=== PATIENT | male | born 1960 | race Caucasian/White ===

== ENCOUNTER → 2016-12-14 | Outpatient (CLI) | payer OTHER, MEDICARE | LOC: EMI 15:37 | DX: M54.16 Radiculopathy, lumbar region (principal); M47.816 Spondylosis without myelopathy or radiculopathy, lumbar region; M47.817 Spondylosis without myelopathy or radiculopathy, lumbosacral region; M48.07 Spinal stenosis, lumbosacral region; M51.37 Other intervertebral disc degeneration, lumbosacral region; Z88.0 Allergy status to penicillin; Z88.2 Allergy status to sulfonamides | CPT/HCPCS: 72148 ==

== ENCOUNTER → 2016-12-26 | Outpatient (CLI) | payer OTHER, MEDICARE | LOC: EMI 13:40 | DX: M54.5 Low back pain (principal); M54.16 Radiculopathy, lumbar region; M51.36 Other intervertebral disc degeneration, lumbar region | CPT/HCPCS: 72148 ==

== ENCOUNTER → 2017-01-08 | Outpatient (CLI) | payer OTHER, MEDICARE | LOC: KOH-I 08:19 | DX: R91.1 Solitary pulmonary nodule (principal); R06.02 Shortness of breath; J98.4 Other disorders of lung | CPT/HCPCS: 71250 ==

== ENCOUNTER → 2017-02-15 | Outpatient (CLI) | payer OTHER, MEDICARE | LOC: RAD 10:13 | DX: M25.552 Pain in left hip (principal) | CPT/HCPCS: 73502 ==

== ENCOUNTER 2020-11-23 15:09 | Emergency (ER) | payer OTHER ==
[~2020-11-23 15:09] MED LIST: K-DUR TAB 20 M20 MEQ PO
[2020-11-23 16:36] LABS: HEMOGLOBIN 15.1 gm/dl (14.0-17.5); RED BLOOD COUNT 4.61 M/UL (4.20-5.50); WHITE BLOOD COUNT 19.9 K/UL (4.5-11.0)
[2020-11-23 17:13] LABS: BUN/CREATININE RATIO 10 (0-10)
== END 2020-11-23 21:49 | disposition home or self-care (01) ==
LOC: ER1 15:09
PROVIDERS: Physician Assistant Medical
DX: E11.649 Type 2 diabetes mellitus with hypoglycemia without coma (principal); R55 Syncope and collapse; I12.9 Hypertensive chronic kidney disease with stage 1 through stage 4 chronic kidney disease, or unspecified chronic kidney disease; Z20.822 Contact with and (suspected) exposure to COVID-19; N18.9 Chronic kidney disease, unspecified; E11.22 Type 2 diabetes mellitus with diabetic chronic kidney disease; F17.210 Nicotine dependence, cigarettes, uncomplicated; Z90.49 Acquired absence of other specified parts of digestive tract; Z88.0 Allergy status to penicillin; Z88.2 Allergy status to sulfonamides; Z79.899 Other long term (current) drug therapy
CPT/HCPCS: 70450; 71045; 80053; 81001; 82550; 82553; 82962; 83874; 83880; 84484; 85025; 93005; 96374; 96376; 99284; U0002

== ENCOUNTER → 2020-11-30 | Outpatient (CLI) | payer OTHER ==
[~2020-11-30] MED LIST changes: +ALDACTONE25 MG PO; +AMITRIPTYLINE H25 MG PO; +ASPIRIN EC81 MG PO; +AVALIDE 300-121 EACH PO; +BACTROBAN OINT22 GM EXT; +BYSTOLIC10 MG PO; +CLEOCIN HCL300 MG PO; +COLESTID1 GM PO; +EFFEXOR XR 75 M75 MG PO; +GABAPENTIN400 MG PO; +LACTULOSE10 GM/15 M PO; +LIPITOR20 MG PO; +MAGNESIUM OXID400 M1 PO; +NEURONTIN800 MG PO; +NOVOLIN 70100 UNIT/2 SC; +OMEPRAZOLE40 MG PO; +ZANAFLEX4 MG PO
[2020-11-30 15:47] LABS: HEMOGLOBIN 13.9 gm/dl (14.0-17.5); RED BLOOD COUNT 4.32 M/UL (4.20-5.50); WHITE BLOOD COUNT 10.9 K/UL (4.5-11.0)
[2020-11-30 16:23] LABS: BUN/CREATININE RATIO 16 (0-10)
== END ==
LOC: LAB 15:08
PROVIDERS: Nurse Practitioner Family
DX: J18.9 Pneumonia, unspecified organism (principal); I51.7 Cardiomegaly
CPT/HCPCS: 36415; 71046; 80048; 83605; 85025

== ENCOUNTER 2020-12-26 16:35 | Emergency (ER) | payer OTHER ==
[~2020-12-26 16:35] MED LIST changes: -ALDACTONE25 MG PO; -AMITRIPTYLINE H25 MG PO; -ASPIRIN EC81 MG PO; -AVALIDE 300-121 EACH PO; -BACTROBAN OINT22 GM EXT; -BYSTOLIC10 MG PO; -CLEOCIN HCL300 MG PO; -COLESTID1 GM PO; -EFFEXOR XR 75 M75 MG PO; -GABAPENTIN400 MG PO; -LACTULOSE10 GM/15 M PO; -LIPITOR20 MG PO; -MAGNESIUM OXID400 M1 PO; -NEURONTIN800 MG PO; -NOVOLIN 70100 UNIT/2 SC; -OMEPRAZOLE40 MG PO; -ZANAFLEX4 MG PO
[2020-12-26 18:09] LABS: RED BLOOD COUNT 4.89 M/UL (4.20-5.50); WHITE BLOOD COUNT 15.3 K/UL (4.5-11.0)
[2020-12-26] MEDS ORDERED: CLEOCIN HCL300 MG PO (20:23)
[2020-12-26] MEDS ORDERED: BACTROBAN OINT22 GM EXT (20:23)
== END 2020-12-26 20:30 | disposition home or self-care (01) ==
LOC: ER1 16:35
PROVIDERS: Physician Assistant Medical
DX: L02.415 Cutaneous abscess of right lower limb (principal); E11.9 Type 2 diabetes mellitus without complications; E78.5 Hyperlipidemia, unspecified; J44.9 Chronic obstructive pulmonary disease, unspecified; I10 Essential (primary) hypertension; Z90.49 Acquired absence of other specified parts of digestive tract; Z88.0 Allergy status to penicillin; Z88.2 Allergy status to sulfonamides
CPT/HCPCS: ECHO; 36415; 80053; 80061; 83036; 83735; 84484; 85025; 87070; 87205; 93005; 93306; 96374; 99283; J2405

== ENCOUNTER → 2020-12-26 | Outpatient (CLI) | payer OTHER | LOC: ECHO 11:00 | PROVIDERS: Emergency Medicine | DX: I11.0 Hypertensive heart disease with heart failure (principal); I50.9 Heart failure, unspecified; E11.9 Type 2 diabetes mellitus without complications; I08.3 Combined rheumatic disorders of mitral, aortic and tricuspid valves; I27.20 Pulmonary hypertension, unspecified | CPT/HCPCS: ECHO; 36415; 80053; 80061; 83036; 93306 ==

== ENCOUNTER 2021-01-02 11:23 | Emergency (ER) | payer OTHER ==
[~2021-01-02] VITALS: Ht 172.7 cm; Wt 124.7 kg
[~2021-01-02 11:23] MED LIST changes: +BACTROBAN OINT22 GM EXT; +CLEOCIN HCL300 MG PO
[2021-01-02 12:04] LABS: HEMOGLOBIN 17.7 gm/dl (14.0-17.5); RED BLOOD COUNT 5.44 M/UL (4.20-5.50); WHITE BLOOD COUNT 15.1 K/UL (4.5-11.0)
== END 2021-01-03 00:38 | disposition short-term general hospital (02) ==
LOC: ER1 11:23
PROVIDERS: Physician Assistant
DX: N28.9 Disorder of kidney and ureter, unspecified (principal); M62.82 Rhabdomyolysis; R41.82 Altered mental status, unspecified; E78.5 Hyperlipidemia, unspecified; Z20.822 Contact with and (suspected) exposure to COVID-19; J44.9 Chronic obstructive pulmonary disease, unspecified; I11.0 Hypertensive heart disease with heart failure; I50.9 Heart failure, unspecified; E11.9 Type 2 diabetes mellitus without complications; Z90.49 Acquired absence of other specified parts of digestive tract; Z79.4 Long term (current) use of insulin; Z79.899 Other long term (current) drug therapy; Z88.0 Allergy status to penicillin; Z88.2 Allergy status to sulfonamides; F17.210 Nicotine dependence, cigarettes, uncomplicated
CPT/HCPCS: 0240U; 51702; 62270; 70450; 71045; 73700; 80053; 80307; 81001; 82140; 82550; 82553; 83605; 83690; 83874; 84484; 85025; 87040; 87077; 87086; 87186; 93005; 96365; 96366; 96372; 96375; 96376; 99152; 99285; G0480; J0692; J1630; J2060; J2704; J3370; J7030; Q9965

== ENCOUNTER 2021-02-22 13:12 | Inpatient (IN) | payer OTHER ==
[~2021-02-22] VITALS: Ht 175.3 cm; Wt 117.0 kg
[2021-02-22 14:42] LABS: HEMOGLOBIN 13.7 gm/dl (14.0-17.5); RED BLOOD COUNT 4.27 M/UL (4.20-5.50); WHITE BLOOD COUNT 12.4 K/UL (4.5-11.0)
[2021-02-22 15:14] LABS: BUN/CREATININE RATIO 11 (0-10)
[2021-02-22] MEDS ORDERED: OMEPRAZOLE40 MG PO (16:27)
[2021-02-22] MEDS ORDERED: NOVOLIN 70100 UNIT/2 SC (16:27)
[2021-02-22] MEDS ORDERED: BYSTOLIC10 MG PO (16:27)
[2021-02-22] MEDS ORDERED: ALDACTONE25 MG PO (16:27)
[2021-02-22] MEDS ORDERED: AMITRIPTYLINE H25 MG PO (16:28)
[2021-02-22] MEDS ORDERED: AVALIDE 300-121 EACH PO (16:28)
[2021-02-22] MEDS ORDERED: LIPITOR20 MG PO (16:28)
[2021-02-22] MEDS ORDERED: NEURONTIN800 MG PO (16:28)
[2021-02-22] MEDS ORDERED: ZANAFLEX4 MG PO (16:29)
[2021-02-22] MEDS ORDERED: EFFEXOR XR 75 M75 MG PO (16:29)
[2021-02-22] MEDS ORDERED: MAGNESIUM OXID400 M1 PO (16:30)
[2021-02-22] MEDS ORDERED: LACTULOSE10 GM/15 M PO (16:34)
[2021-02-22] MEDS ORDERED: COLESTID1 GM PO (16:38)
[2021-02-22] MEDS ORDERED: ASPIRIN EC81 MG PO (16:39)
[2021-02-23 03:50] LABS: HEMOGLOBIN 13.2 gm/dl (14.0-17.5); RED BLOOD COUNT 4.16 M/UL (4.20-5.50); WHITE BLOOD COUNT 10.8 K/UL (4.5-11.0)
[2021-02-23 04:09] LABS: BUN/CREATININE RATIO 14 (0-10)
[2021-02-24 04:53] LABS: HEMOGLOBIN 13.8 gm/dl (14.0-17.5); RED BLOOD COUNT 4.31 M/UL (4.20-5.50); WHITE BLOOD COUNT 10.3 K/UL (4.5-11.0)
[2021-02-24 07:55] LABS: BUN/CREATININE RATIO 16 (0-10)
[2021-02-24] MEDS ORDERED: GABAPENTIN400 MG PO (11:44)
== END 2021-02-24 13:06 | disposition home or self-care (01) | DRG 441 ==
LOC: ER1 13:12 → M/S 15:40 → CDU 15:40 → M/S 18:31
PROVIDERS: Preventive Medicine Occupational Medicine; ADMIT Family Medicine
DX: K72.90 Hepatic failure, unspecified without coma (principal); G93.41 Metabolic encephalopathy; K75.81 Nonalcoholic steatohepatitis (NASH); I12.9 Hypertensive chronic kidney disease with stage 1 through stage 4 chronic kidney disease, or unspecified chronic kidney disease; Z20.822 Contact with and (suspected) exposure to COVID-19; E66.8 Other obesity; G89.29 Other chronic pain; F32.9 Major depressive disorder, single episode, unspecified; G47.00 Insomnia, unspecified; N18.9 Chronic kidney disease, unspecified; E11.22 Type 2 diabetes mellitus with diabetic chronic kidney disease; M19.90 Unspecified osteoarthritis, unspecified site; K59.09 Other constipation; E11.40 Type 2 diabetes mellitus with diabetic neuropathy, unspecified; Z79.4 Long term (current) use of insulin; Z90.49 Acquired absence of other specified parts of digestive tract; Z88.0 Allergy status to penicillin; Z88.2 Allergy status to sulfonamides; Z79.82 Long term (current) use of aspirin; Z68.23 Body mass index [BMI] 23.0-23.9, adult
CPT/HCPCS: 0240U; 36415; 36600; 70450; 71045; 76705; 80053; 80307; 82009; 82140; 82550; 82553; 82803; 82962; 83605; 83690; 83874; 83880; 84439; 84443; 84484; 85025; 85027; 85652; 86140; 87040; 96374; 99285; G0480; J1940; J7030

== ENCOUNTER → 2021-08-18 | Outpatient (CLI) | payer OTHER ==
[~2021-08-18] MED LIST changes: +ALDACTONE25 MG PO; +AMITRIPTYLINE H25 MG PO; +ASPIRIN EC81 MG PO; +AVALIDE 300-121 EACH PO; +BYSTOLIC10 MG PO; +COLESTID1 GM PO; +EFFEXOR XR 75 M75 MG PO; +GABAPENTIN400 MG PO; +LACTULOSE10 GM/15 M PO; +LIPITOR20 MG PO; +MAGNESIUM OXID400 M1 PO; +NEURONTIN800 MG PO; +NOVOLIN 70100 UNIT/2 SC; +OMEPRAZOLE40 MG PO; +ZANAFLEX4 MG PO
[2021-08-18 07:54] LABS: HEMOGLOBIN 14.7 gm/dl (14.0-17.5); RED BLOOD COUNT 4.51 M/UL (4.20-5.50); WHITE BLOOD COUNT 11.3 K/UL (4.5-11.0)
[2021-08-18 08:21] LABS: BUN/CREATININE RATIO 10 (0-10)
== END ==
LOC: LAB 07:16
PROVIDERS: Physician Assistant
DX: R19.7 Diarrhea, unspecified (principal); E66.9 Obesity, unspecified; E11.9 Type 2 diabetes mellitus without complications; K72.90 Hepatic failure, unspecified without coma; K74.60 Unspecified cirrhosis of liver; K76.0 Fatty (change of) liver, not elsewhere classified
CPT/HCPCS: 36415; 80053; 82105; 82140; 82728; 83540; 83550; 85027; 85610

== ENCOUNTER → 2021-10-03 | Outpatient (CLI) | payer OTHER ==
[2021-10-04 06:09] LABS: ALKALINE PHOSPHATASE, S 182 IU/L (44-121); ALT (SGPT) 20 IU/L (0-44); AST (SGOT) 37 IU/L (0-40); BILIRUBIN, TOTAL 1.6 mg/dL (0.0-1.2); BUN 11 mg/dL (8-27); BUN/CREATININE RATIO 9 (10-24); CALCIUM, SERUM 9.7 mg/dL (8.6-10.2); CARBON DIOXIDE, TOTAL 26 mmol/L (20-29); CHLORIDE, SERUM 99 mmol/L (96-106); CHOLESTEROL, TOTAL 149 mg/dL (100-199); CREATININE, SERUM 1.17 mg/dL (0.76-1.27); EGFR IF AFRICN AM 77 (>59); EGFR IF NONAFRICN AM 67 (>59); ESTIM. AVG GLU (EAG) 266 mg/dL (.); GLOBULIN, TOTAL 3.6 g/dL (1.5-4.5); GLUCOSE, SERUM 251 mg/dL (65-99); HDL CHOLESTEROL 71 mg/dL (>39); HEMOGLOBIN A1C 10.9 % (4.8-5.6); LDL CHOLESTEROL CALC 65 mg/dL (0-99); LDL/HDL RATIO 0.9 ratio (0.0-3.6); POTASSIUM, SERUM 4.3 mmol/L (3.5-5.2); PROTEIN, TOTAL, SERUM 7.1 g/dL (6.0-8.5); SODIUM, SERUM 136 mmol/L (134-144); T. CHOL/HDL RATIO 2.1 ratio (0.0-5.0); TRIGLYCERIDES 67 mg/dL (0-149)
== END ==
LOC: LAB 13:11
PROVIDERS: Emergency Medicine
DX: E11.9 Type 2 diabetes mellitus without complications (principal); Z79.899 Other long term (current) drug therapy
CPT/HCPCS: 36415; 80053; 80061; 83036

== ENCOUNTER → 2022-03-07 | Outpatient (CLI) | payer OTHER | LOC: US 10:06 | DX: K74.60 Unspecified cirrhosis of liver (principal); K76.0 Fatty (change of) liver, not elsewhere classified; K74.69 Other cirrhosis of liver | CPT/HCPCS: 76705 ==